=== PATIENT | male | born 1955 | race African-American/Black ===

== ENCOUNTER 2019-05-30 05:38 | Emergency (ER) | payer OTHER ==
[~2019-05-30] VITALS: Ht 182.9 cm; Wt 74.8 kg
[2019-05-30 05:50] VITALS: BP 136/81
--- NOTE | 2019-05-30 05:55 | NUR ---
ER Nurse Note: Pt walked in c/o LT upper quadrant skin abscess that occured 8 days ago. Pt stated he injected himself with a clean needle and abscess formed. Pt stated 06/15 laura, cordell with light touch. Abscess pink, localized, in LUQ of abd. SKin intact, no drainage, firm around edges. Will continue to montior.
[2019-05-30] MEDS ORDERED: Cephalexin 500mg cap ORAL ONE (06:00)
[2019-05-30] MEDS ORDERED: Ketorolac 30mg Inj IM ONE (06:00)
[2019-05-30] MEDS ORDERED: Lidocaine 1% 10mg/ml/EPI 0.01mg/ml 20ml INJ ONE (06:00)
[2019-05-30] MEDS ORDERED: Bactrim-DS 1 tab ORAL ONE (06:00)
--- NOTE | 2019-05-30 06:02 | Emergency Room Report ---
History of Present Illness General Chief Complaint: Skin Rash/Abscess Source: Patient Present Illness HPI The patient presents with swelling in his left upper abdomen on the skin. He admits to injecting methamphetamine for approximately 1 week. After this there began to be swelling and pain in the area. He denies fevers or chills. He was considering poking a needle and draining it himself. He elected to come here. His last tetanus was 2 years ago. He denies nausea, vomiting, diarrhea. There is no suicidal or homicidal ideation. He claims is not using every day. Use for 1 week 2 weeks ago. Its been 8 days that this has been developing. History of hepatitis C. denies HIV No fevers, chills, sore throat, chest pain, palpitations, dysuria, shortness of breath, joint pain, depression, anxiety, visual changes, headache. 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 Nursing Documentation: PMH: Agreed; PSxH: Agreed Nursing Documentation-PMH Past Medical History: No Stated History Review of Systems All Other Systems: negative except mentioned in HPI Physical Exam Vital Signs Date Time Temp Pulse Resp B/P (MAP) Pulse Ox O2 Delivery O2 Flow Rate FiO2 05/30/19 05:40 98.1 88 18 136/81 (99) 98 Room Air Sp02 EP Interpretation: reviewed, normal General Appearance: well appearing, no apparent distress, GCS 15, non-toxic Head: normocephalic, atraumatic Eyes: bilateral eye normal inspection, bilateral eye PERRL, bilateral eye EOMI ENT: moist mucus membranes Neck: full range of motion, supple Respiratory: chest non-tender, lungs clear, normal breath sounds Cardiovascular #1: regular rate, rhythm Gastrointestinal: normal bowel sounds, soft, no guarding, no rebound, tenderness Genitourinary: no CVA tenderness Musculoskeletal: gait/station normal, normal range of motion Neurologic: alert, oriented x3, grossly normal Psychiatric: mood/affect normal Skin: other - Abscess left upper abdomen with fluctuance 3 x 4 cm with surrounding erythema Procedures Incision and Drainage Incision and Drainage : Consent: Verbal Site: abdomen Blade Size: 11 I & D Procedure: betadine prep, sterile drapes applied, sterile dressing applied, gauze wick placed Wound Location: abdomen - Wall Wound's Depth, Shape: superficial Wound Length (cm): 1 Wound Explored: contaminated Irrigated w/ Saline (ccs): 60 Anesthesia: Lidocaine w/ Epi Volume Anesthetic (ccs): 8 Splint Applied?: No Sling Applied?: Yes Patient Tolerated: Well Complications: None Progress Nerve block performed. Superficial block after prep. Incision with copious amounts of pus expressed. Drainage irrigation more pus expressed until clear drainage with some blood. Wound packed with gauze. Patient tolerated the procedure well. Complaining about pain but sleeping. Medical Decision Making Diagnostic Impression: Primary Impression: Abdominal wall abscess Additional Impression: History of substance abuse ER Course Patient presents with abdominal wall swelling and redness. Differential includes abscess, cellulitis. Based on exam there is no intra-abdominal process. The patient is not toxic at this time. Incision and drainage and antibiotics are indicated. In addition analgesia will be given. See procedure note. Patient admits to more recent use of methamphetamine as he is so tired. He states she has a sponsor. Patient improved with treatment. Patient nontoxic. Able to sleep without difficulty. Discussed treatment plan with his return with gauze packing tomorrow for repeat evaluation. He was also advised that if he is not doing well to return. Also discussed the need for attending methamphetamine anonymous. Patient improved and stable for outpatient observation and treatment. Last Vital Signs Date Time Temp Pulse Resp B/P (MAP) Pulse Ox O2 Delivery O2 Flow Rate FiO2 05/30/19 06:48 98.1 88 18 128/82 98 Room Air Status: improved Disposition: HOME, SELF-CARE Condition: Improved Scripts Ibuprofen* (MOTRIN*) 600 Mg Tablet 600 MG ORAL Q6H PRN for For Pain, #20 TAB 0 Refills Prov: Regulo Dudley MD 05/30/19 Tramadol Hcl* (ULTRAM*) 50 Mg Tablet 50 MG ORAL Q6H PRN for For Pain, #6 TAB 0 Refills Prov: Regulo Dudley MD 05/30/19 Cephalexin* (KEFLEX*) 500 Mg Capsule 500 MG ORAL EVERY 6 HOURS, #28 CAP Prov: Regulo Dudley MD 05/30/19 Trimethoprim/Sulfamethoxazole 160/800* (BACTRIM DS TABLET*) 1 Each Tablet 1 TAB ORAL Q12H, #14 TAB 0 Refills Prov: Regulo Dudley MD 05/30/19 Regulo Dudley MD May 30, 2019 06:02
[2019-05-30] MEDS ORDERED: CEPHALEXIN500 MG ORAL (06:40)
[2019-05-30] MEDS ORDERED: IBUPROFEN600 MG ORAL (06:40)
[2019-05-30] MEDS ORDERED: BACTRIM DS TAB1 EAC1 ORAL (06:40)
[2019-05-30] MEDS ORDERED: TRAMADOL HCL50 MG ORAL (06:40)
[2019-05-30 06:48] VITALS: BP 128/82
--- NOTE | 2019-05-30 06:48 | NUR ---
ER Nurse Note: Pt seen, treated, medically cleared for discharge by ERMD. Discharge instuctions and prescriptions given with repeat verbalization by pt. Emphasized to follow up with primay care provider; take whole course of medication. Explained each medication. Emphsized pt to return 05/31 for wound check up. All orders completed per ERMD orders. Consent obtained by pt for I&D. Wound drained and packed by Dr. Chavarria. Pt a&ox4, VSS, no signs of distress. ID band removed. IV removed; site clean and bandaged. All questions answered per pt's questions. Pt left with all belongings, left with own transportation.
== END 2019-05-30 06:48 | disposition home or self-care (01) ==
LOC: EMR 06:04
DX: L02.211 Cutaneous abscess of abdominal wall (principal); F15.10 Other stimulant abuse, uncomplicated; B19.20 Unspecified viral hepatitis C without hepatic coma; F17.200 Nicotine dependence, unspecified, uncomplicated
CPT/HCPCS: 10060; 96372; 99284; J1885; Z7502

== ENCOUNTER 2020-06-26 11:23 | Emergency (ER) | payer OTHER ==
[~2020-06-26] VITALS: Ht 180.3 cm; Wt 79.4 kg
[~2020-06-26 11:23] MED LIST: BACTRIM DS TAB1 EAC1 ORAL; CEPHALEXIN500 MG ORAL; IBUPROFEN600 MG ORAL; TRAMADOL HCL50 MG ORAL
[2020-06-26 11:44] VITALS: BP 182/112
--- NOTE | 2020-06-26 12:08 | NUR ---
ED Nurse Note: Pt. AAOx4. ambualtory. pt. wlaked in to er from home. pt. is here is c/o lower back pain that radiates around to right leg causing painful ambulation. denies recent trauma
[2020-06-26] MEDS ORDERED: Tylenol #3 tab (300mg/30mg) ORAL ONE (12:30)
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
[2020-06-26] MEDS ORDERED: ACETAMINOPHEN-1 EAC1 ORAL (12:58)
[2020-06-26 13:15] VITALS: BP 182/112
--- NOTE | 2020-06-26 13:15 | NUR ---
ED Nurse Note: Pt cleared by health care Provider for discharge. DC instructions/prescription was given and explained to pt and verbalized understanding of teachings. All medical deviecs such as ID band removed. Pt is AAO x4, ambulatory and left with all personal belongings.
== END 2020-06-26 13:15 | disposition home or self-care (01) ==
LOC: EMR 12:55
DX: G89.29 Other chronic pain (principal); I10 Essential (primary) hypertension
CPT/HCPCS: 99282

== ENCOUNTER 2020-10-12 11:06 | Emergency (ER) | payer OTHER ==
[~2020-10-12] VITALS: Ht 182.9 cm; Wt 74.8 kg
[~2020-10-12 11:06] MED LIST changes: +ACETAMINOPHEN-1 EAC1 ORAL
[2020-10-12 11:15] VITALS: BP 162/89
--- NOTE | 2020-10-12 11:15 | NUR ---
ED Nurse Note: Pt walked in from home c/o multiple abscesses on abdomen, upper and lower extermities that he noticed a week ago. Respirations even and unlabored on room air. Vitals stable as documented. A+Ox4, speaking in complete sentences.
[2020-10-12] MEDS ORDERED: BACTRIM DS TAB1 EAC1 ORAL (11:28)
[2020-10-12] MEDS ORDERED: DOXYCYCLINE MO100 MG ORAL (11:28)
--- NOTE | 2020-10-12 11:28 | Emergency Room Report ---
History of Present Illness General Chief Complaint: Skin Rash/Abscess Source: Patient, Medical Record Present Illness HPI 64M PMHx hep C and IM Drug abuse (last use meth 2 days ago) here requesting abx for his abscesses. Patient has multiple abscess to forearms that he has had for several days. Denies fever, chills, shortness of breath, hemoptysis, cough, nausea, vomiting, diarrhea, melena, hematochezia, neck pain, back pain, saddle anesthesia, urinary retention, bowel or bladder incontinence The patient's symptoms were gradual onset, severity was moderate, duration since several days. Quality: Swollen Past medical history: IV drug use Past surgical history: Previous incision and drainage Smoking: Denies Alcohol use: Positive Drug use: Positive for intramuscular methamphetamine use Review of systems: CONST: No fevers or chills, No night sweats PULMONARY: No productive cough, No shortness of breath CARDIAC: No chest pain, No palpitations GI: No vomiting, No diarrhea , No melena_or_BRBPR : No dysuria, No hematuria, No discharge NEURO: No new_focal_weakness_or_numbness, No confusion, No vision changes 14 point Review of Systems is otherwise negative except per HPI Physical Exam: GENERAL: Awake_alert_ nontoxic, no acute distress Spo2 97 % on RA -normal EYES: Extraocular muscles are intact. Conjunctivae clear. Lids without swelling ENT: External nose and ear normal_in_appearance. Oropharynx clear. Head_ atraumatic, Moist_oral_mucosa NECK: No JVD. No meningismus. No thyromegaly. Supple. Trachea midline RESP: Normal respiratory effort. Symmetric rise. No stridor. Clear_to_auscultation_No_rales_No_wheezes CARDIAC: Regular rate and regular rhytm. No_significant pedal edema. ABDOMEN: Soft. Nondistended. Nontender_No_rebound_or_guarding. MSK: Normal muscle tone, without rigidity. Extremities without asymmetric deformity or swelling. SKIN: Multiple indurated abscesses involving the right medial forearm, left medial forearm, anterior saleh bilaterally. There is mild fluctuance on the abscess on the right medial forearm. There is no palpable crepitus or visible cellulitis to any of the abscesses. NEUROLOGIC: Alert, oriented x3. Motor_and_sensation_grossly_intact. No truncal ataxia. Gait_normal Psych: Normal mood and affect, normal judgment and insight - COORDINATION OF CARE Case was discussed with: Patient Previous charting reviewed. Patient was here about a week ago and prescribed Bactrim Medical Decision Making/Plan: Differential diagnosis: Abscess versus folliculitis versus cellulitis No clinical signs of necrotizing fasciitis, DVT, arterial injury, thrombophlebitis Patient is nontoxic and well-appearing. Afebrile. He denies any complaint of shortness of breath or dyspnea on exertion. No clinical signs of endocarditis at this time. No murmur auscultated on examination. He is a chronic IM methamphetamine abuser. I counseled him extensively on attempting to quit as drugs are bad for his health. I offered incision and drainage for his multiple abscesses to get source control, however patient states that he had this done before and "it hurt too bad last time". Risks, benefits, alternatives were discussed. Patient declines incision and drainage at this time. Tdap was updated. Patient will be discharged with antibiotics. Strict return ER precautions were discussed. Patient will follow up with his primary care doctor in 12 to 24 hours for wound check. He states he will follow-up to [facility] for Suboxone program Pertinent results reviewed with the patient. I educated the patient on the current treatment plan including the risks, benefits, and alternatives. I also discussed the extent and limitations of the current evaluation. The patient expressed understanding and agreement with plan. I recommended PMD follow-up within 1-2 days. Also advised that the patient return to the Emergency Department as soon as possible if they experience any new, persistent, or worsening symptoms. Allergies: Coded Allergies: No Known Allergies (Unverified , 05/30/19) COVID-19 Screening Contact w/high risk pt: No Experienced COVID-19 symptoms?: No COVID-19 Testing performed FIELD EXAMINER: No Nursing Documentation-PMH Past Medical History: No History, Except For Hx Hypertension: Yes Physical Exam Vital Signs Date Time Temp Pulse Resp B/P (MAP) Pulse Ox O2 Delivery O2 Flow Rate FiO2 10/12/20 11:10 98.8 85 16 178/96 (123) 97 Room Air Sp02 EP Interpretation: reviewed, normal Medical Decision Making Diagnostic Impression: Primary Impression: Abscess Additional Impressions: IVDU (intravenous drug user) Methamphetamine abuse History of substance abuse Reevaluation Time: 11:26 Last Vital Signs Date Time Temp Pulse Resp B/P (MAP) Pulse Ox O2 Delivery O2 Flow Rate FiO2 10/12/20 11:10 98.8 85 16 178/96 (123) 97 Room Air Status: improved Disposition: HOME, SELF-CARE Admit Decision Time: 12:00 Condition: Stable Scripts Tramadol Hcl* (ULTRAM*) 50 Mg Tablet 50 MG ORAL Q6H PRN for For Pain, #12 TAB 0 Refills Prov: Gogo Bingham D.O. 10/12/20 Doxycycline Monohydrate* (DOXYCYCLINE MONOHYDRATE*) 100 Mg Capsule 100 MG ORAL Q12H, #14 CAP 0 Refills Prov: Gogo Bingham D.O. 10/12/20 Trimethoprim/Sulfamethoxazole 160/800* (BACTRIM DS TABLET*) 1 Each Tablet 1 TAB ORAL TWICE A DAY for 7 Days, #14 TAB Prov: Gogo Bingham D.O. 10/12/20 Patient Instructions: Abscess Additional Instructions: Instructions for patient/investment advisor: Follow up with your physician in 1-2 days for wound check. Stop injecting IV drugs/intramuscular drugs as they are damaging to your health. You have declined incision and drainage at this time. Follow-up with your doctor sooner if your condition requires a more timely clinical reevaluation. Return to the emergency department immediately if you feel that your condition is worsening or if you have any new or concerning symptoms. Review your discharge instructions and take any prescriptions given as instructed. [facility] PROVIDES FREE OR LOW-COST HEALTH SERVICES TO PEOPLE WHO CAN SHOW PROOF THAT THEY LIVE IN [facility]. TO FIND MORE CLINICS PARTNERED WITH THE [facility] TO PROVIDE SERVICE, PLEASE CALL . Gogo Bingham D.O. Oct 12, 2020 11:28
[2020-10-12] MEDS ORDERED: Tetanus/Diptheria/Pertussis IM ONE (11:30)
[2020-10-12] MEDS ORDERED: Lidocaine 1% Plain 30 ml INJ ONE (11:30)
[2020-10-12] MEDS ORDERED: TRAMADOL HCL50 MG ORAL (11:39)
[2020-10-12 11:45] VITALS: BP 161/93
--- NOTE | 2020-10-12 11:45 | NUR ---
ED Nurse Note: Pt cleared by health care Provider for discharge. DC instructions/prescription were given and explained to pt and verbalized understanding of teachings. All medical devices such as ID band removed. Pt is AAO x4, ambulatory and left with all personal belongings.
== END 2020-10-12 11:45 | disposition home or self-care (01) ==
LOC: EMR 11:45
DX: L02.414 Cutaneous abscess of left upper limb (principal); L02.413 Cutaneous abscess of right upper limb; F15.10 Other stimulant abuse, uncomplicated; I10 Essential (primary) hypertension; F19.11 Other psychoactive substance abuse, in remission
CPT/HCPCS: 90471; 90715; J2001; Z7502; 99282